=== PATIENT | male | born 1975 | race Caucasian/White ===

== ENCOUNTER 2017-01-28 22:33 | Emergency (ER) | payer BC ==
[2017-01-28] MEDS ORDERED: Amoxicillin 500 MG Cap ONE (22:50)
[2017-01-28] MEDS ORDERED: Hydrocortisone/Neomycin/Polymyxin B Otic Soln 10 ML Bottle ONE (22:50)
--- NOTE | 2017-01-28 23:16 | EDM.PDOC ---
ED HPI GENERAL MEDICAL PROBLEM - General Chief Complaint: General Stated Complaint: EAR INFECTION Time Seen by Provider: 01/28/17 23:00 Source of Information: Reports: Patient History Limitations: Reports: No limitations - History of Present Illness INITIAL COMMENTS - FREE TEXT/NARRATIVE: According to patient he has been having left ear pain for past 1 wk, but has got worse today. No fever or chills. No nausea or vomiting. No ear discharge. No ringing in the ear. No headache. Duration: Week(s): (1), Getting worse Location: Reports: other (left ear) Quality: Reports: Ache Associated Symptoms: Denies: confusion, chest pain, cough, fever/chills, headaches, nausea/vomiting, rash, syncope, weakness - Related Data Allergies Allergy/AdvReac Type Severity Reaction Status Date / Time No Known Allergies Allergy Verified 07/12/15 21:23 Home Meds: Home Meds NK [No Known Home Meds] 07/12/15 [History] Past Medical History - Past Health History Medical/Surgical History: Denies Medical/Surgical History Social & Family History - Tobacco Use Smoking Status *Q: Never Smoker - Recreational Drug Use Recreational Drug Use: No ED ROS GENERAL - Review of Systems Review Of Systems: See Below Constitutional: Denies: fever, chills HEENT: Reports: Ear pain. Denies: Contact Lenses, Ear discharge, Eye discharge , Throat pain, Throat swelling Respiratory: Denies: Shortness of Breath, Cough, Sputum Cardiovascular: Denies: Chest pain, Edema GI/Abdominal: Denies: Abdominal pain, Nausea, Vomiting : Denies: discharge, dysuria, flank pain Musculoskeletal: Denies: joint pain, joint swelling Skin: Denies: pruritis, rash ED EXAM, GENERAL - Physical Exam Exam: See Below Exam Limited By: No limitations General Appearance: alert, WD/WN, no apparent distress Eye Exam: bilateral eye: EOMI, PERRL Ears: normal external exam Ear Exam: left ear: other (there is erythema and swelling of the ear cancal. + tragus sign. No discharge.), bilateral ear: TM normal Course - Vital Signs Text/Narrative:: Pt has left acute otitis externa. I did ask if patient has habit of frequent cleaning of the ears. he claims he uses qtip to clean every day. This is possible cause of his external ear infection. i have advised patient not to clean ear every day, and do it once a week. He has been started on cortisporin ear drops 3 times daily for 5 days and also started on amox 500mg 3 times daily. Motrin 600-800mg as needed for pain. Departure - Departure Time of Disposition: 23:20 Disposition: Home, Self-Care 01 Condition: good Clinical Impression: Otitis externa Forms: ED Department Discharge - Problem List & Annotations (1) Otitis externa SNOMED Code(s): 3407991 Code(s): H60.90 - UNSPECIFIED OTITIS EXTERNA, UNSPECIFIED EAR Status: Acute - Problem List Review Problem List Initiated/Reviewed/Updated: Yes - Assessment/Plan Assessment:: Left otitis externa Plan: Pt has left acute otitis externa. I did ask if patient has habit of frequent cleaning of the ears. he claims he uses qtip to clean every day. This is possible cause of his external ear infection. i have advised patient not to clean ear every day, and do it once a week. He has been started on cortisporin ear drops 3 times daily for 5 days and also started on amox 500mg 3 times daily. Motrin 600-800mg as needed for pain.
== END 2017-01-28 23:15 | disposition home or self-care (01) ==
LOC: LB.ED 22:33
DX: H60.502 Unspecified acute noninfective otitis externa, left ear (principal)
CPT/HCPCS: 99282; A9270